=== PATIENT | female | born 1950 | race African-American/Black ===

== ENCOUNTER → 2019-11-29 | Outpatient (CLI) | payer MEDICARE, MEDICAID ==
[~2019-11-29] MED LIST: AMLO10TA80 PO; ASPI-1158 PO; CELL2 PO; CINA30 PO; ESOM40CA PO; PRED5TAB48 PO; PROG1 PO; SULF-292 PO
== END | disposition home or self-care (01) ==
LOC: RAD 12:35
PROVIDERS: ATTEND Neurological Surgery
DX: M43.16 Spondylolisthesis, lumbar region (principal); M47.817 Spondylosis without myelopathy or radiculopathy, lumbosacral region; M48.07 Spinal stenosis, lumbosacral region; M43.26 Fusion of spine, lumbar region
CPT/HCPCS: 72114

== ENCOUNTER → 2019-12-10 | Outpatient (CLI) | payer MEDICARE, MEDICAID | END | disposition home or self-care (01) | LOC: MRI 08:31 | PROVIDERS: ATTEND Neurological Surgery | DX: M43.16 Spondylolisthesis, lumbar region (principal); M47.816 Spondylosis without myelopathy or radiculopathy, lumbar region; M48.061 Spinal stenosis, lumbar region without neurogenic claudication; N26.1 Atrophy of kidney (terminal) | CPT/HCPCS: 72131; 72148 ==